=== PATIENT | male | born 1990 | race Caucasian/White ===

== ENCOUNTER 2022-08-30 08:28 | Emergency (ER) | payer OTHER ==
[2022-08-30 08:34] VITALS: BP 119/80; PULSE 86; RESP 16; TEMP 97.3; BMI 25.7
[2022-08-30] MEDS ORDERED: IBUPROFEN 400 MG TABLET (FP) PO ONE ×2 (09:10→09:17)
== END 2022-08-30 11:29 | disposition home or self-care (01) ==
LOC: JERFT 08:28
DX: M25.531 Pain in right wrist (principal); M25.532 Pain in left wrist
CPT/HCPCS: 73110-TC-LT-FY; 73130-TC-LT-FY; 99283-25